=== PATIENT | male | born 1960 | race Caucasian/White ===

== ENCOUNTER 2018-12-31 22:53 | Inpatient (IN) | payer MEDICAID, OTHER ==
[2019-01-01 00:08] LABS: ADD MAN DIFF? NO
[2019-01-01 00:09] LABS: ABNORMAL IP MESSAGE 1; BASOPHILS % 0.4 % (0.0-2.0); EOSINOPHILS # 0.2 10^3/ul (0.0-0.5); EOSINOPHILS % 3.9 % (0.0-7.0); HEMATOCRIT 28.1 % (42.0-52.0); HEMOGLOBIN 8.4 g/dl (14.0-18.0); LYMPHOCYTES # 0.6 10^3/ul (0.8-2.9); LYMPHOCYTES % 10.8 % (15.0-51.0); MEAN CORPUSCULAR HEMOGLOBIN 25.9 pg (29.0-33.0); MEAN CORPUSCULAR HGB CONC 29.9 g/dl (32.0-37.0); MEAN CORPUSCULAR VOLUME 86.7 fl (82.0-101.0); MEAN PLATELET VOLUME 10.2 fl (7.4-10.4); MONOCYTE # 0.5 10^3/ul (0.3-0.9); MONOCYTES % 9.2 % (0.0-11.0); NEUTROPHILS % 75.1 % (39.0-77.0); PLATELET COUNT 92 10^3/UL (140-415); POSITIVE DIFF @See below; RED BLOOD COUNT 3.24 10^6/ul (4.70-6.10); RED CELL DISTRIBUTION WIDTH 16.6 % (11.5-14.5)
[2019-01-01 00:09] LABS: WHITE BLOOD COUNT 5.4 10^3/ul (4.8-10.8)
[2019-01-01] MEDS: morphine 4 MG/ML VIAL IV (00:19)
[2019-01-01] MEDS: ONDANSETRON 4 MG INJ IV ×3 (00:19→12:13)
[2019-01-01] MEDS: SOD CHLORIDE 0.9% 1,000 ML IV ×4 (00:20→21:06)
[2019-01-01] MEDS: CEFTRIAXONE 1 GM/50 ML (PMX) 50 ML IVPB (00:20)
[2019-01-01 00:27] LABS: PROTIME 17.3 Sec (11.9-14.9); PT RATIO 1.4
[2019-01-01 00:29] LABS: PARTIAL THROMBOPLASTIN TIME 27.5 Sec (23.0-35.0)
[2019-01-01] MEDS: OCTREOTIDE 50 MCG in SOD CHLORIDE 0.9% 25 ML IVPB (00:40)
[2019-01-01] MEDS: PANTOPRAZOLE IV 80 MG in SOD CHLORIDE 0.9% 100 ML IVPB (00:40)
[2019-01-01 00:50] LABS: ALANINE AMINOTRANSFERASE 39 IU/L (13-69); ALBUMIN 3.3 g/dl (3.3-4.9); ALBUMIN/GLOBULIN RATIO 0.91; ALKALINE PHOSPHATASE 75 IU/L (42-121); ANION GAP 10 (5-13); ASPARTATE AMINO TRANSFERASE 52 IU/L (15-46); BLOOD UREA NITROGEN 19 mg/dl (7-20); CALCIUM 8.5 mg/dl (8.4-10.2); CARBON DIOXIDE 22 mmol/L (21-31); CHLORIDE 110 mmol/L (97-110); Estimated GFR > 60 mL/min (>60); GLUCOSE 167 mg/dl (70-220); LIPASE 225 U/L (23-300); POTASSIUM 4.2 mmol/L (3.5-5.1); SODIUM 142 mmol/L (135-144); TOTAL PROTEIN 6.9 g/dl (6.1-8.1)
[2019-01-01 00:56] LABS: TROPONIN-I < 0.012 ng/ml (0.000-0.120)
[2019-01-01] MEDS: OCTREOTIDE 500 MCG in SOD CHLORIDE 0.9% 49 ML IV (01:00)
[2019-01-01] MEDS: PANTOPRAZOLE IV 80 MG in SOD CHLORIDE 0.9% 100 ML IV ×3 (01:00→21:06)
[2019-01-01] MEDS: METOCLOPRAMIDE 10 MG INJ IV (01:10)
[2019-01-01] MEDS: ONDANSETRON INJ 8 MG in DEXTROSE 5% 50 ML IV (01:10)
[2019-01-01] MEDS ORDERED: NACL 0.9% 3 ML SYG IV (02:00)
[2019-01-01] MEDS ORDERED: morphine 2 MG INJ IV (02:00)
[2019-01-01] MEDS ORDERED: LORAZEPAM 2 MG INJ IV (03:00)
[2019-01-01] MEDS: PHYTONADIONE 10 MG/ML INJ SC (03:59)
[2019-01-01 04:09] LABS: IMMEDIATE SPIN CROSSMATCH 1 2
[2019-01-01] MEDS: SOD CHLORIDE 0.9% 250 ML IV* (04:30)
[2019-01-01 09:43] LABS: IMMEDIATE SPIN CROSSMATCH 1
[2019-01-01] MEDS: OCTREOTIDE 1 MG in DEXTROSE 5% 95 ML IV (09:58)
[2019-01-01] MEDS ORDERED: TRIMETHOBENZAMIDE 100 MG/ML VIAL IM (10:00)
[2019-01-01 10:12] LABS: ADD MAN DIFF? NO
[2019-01-01 10:15] LABS: WHITE BLOOD COUNT 3.6 10^3/ul (4.8-10.8)
[2019-01-01 10:15] LABS: ABNORMAL IP MESSAGE 1; BASOPHILS % 0.3 % (0.0-2.0); EOSINOPHILS % 0.3 % (0.0-7.0); HEMATOCRIT 27.8 % (42.0-52.0); HEMOGLOBIN 8.4 g/dl (14.0-18.0); LYMPHOCYTES # 0.4 10^3/ul (0.8-2.9); LYMPHOCYTES % 11.5 % (15.0-51.0); MEAN CORPUSCULAR HEMOGLOBIN 25.8 pg (29.0-33.0); MEAN CORPUSCULAR HGB CONC 30.2 g/dl (32.0-37.0); MEAN CORPUSCULAR VOLUME 85.5 fl (82.0-101.0); MONOCYTE # 0.3 10^3/ul (0.3-0.9); MONOCYTES % 8.4 % (0.0-11.0); NEUTROPHIL # 2.8 10^3/ul (1.6-7.5); NEUTROPHILS % 78.7 % (39.0-77.0); PLATELET COUNT 73 10^3/UL (140-415); POSITIVE DIFF @See below; RED BLOOD COUNT 3.25 10^6/ul (4.70-6.10); RED CELL DISTRIBUTION WIDTH 15.9 % (11.5-14.5)
[2019-01-01 10:30] LABS: ETHANOL < 10.0 mg/dl (0-0)
[2019-01-01] MEDS: MULTIVITAMINS 10 ML, THIAMINE 100 MG, FOLIC ACID 1 MG in SOD CHLORIDE 0.9% 1,000 ML IVPB (12:09)
[2019-01-01 16:01] LABS: HEMATOCRIT 26.8 % (42.0-52.0); HEMOGLOBIN 8.3 g/dl (14.0-18.0)
[2019-01-01 19:04] LABS: HEMATOCRIT 27.1 % (42.0-52.0); HEMOGLOBIN 8.3 g/dl (14.0-18.0)
[2019-01-02 00:56] LABS: HEMATOCRIT 25.7 % (42.0-52.0); HEMOGLOBIN 7.9 g/dl (14.0-18.0)
[2019-01-02] MEDS: CEFTRIAXONE 1 GM/50 ML (PMX) 50 ML IVPB (02:00)
[2019-01-02] MEDS: OCTREOTIDE 1 MG in DEXTROSE 5% 95 ML IV (05:50)
[2019-01-02 06:03] LABS: ADD MAN DIFF? NO
[2019-01-02 06:09] LABS: WHITE BLOOD COUNT 4.4 10^3/ul (4.8-10.8)
[2019-01-02 06:09] LABS: ABNORMAL IP MESSAGE 1; BASOPHILS % 0.5 % (0.0-2.0); EOSINOPHILS # 0.2 10^3/ul (0.0-0.5); EOSINOPHILS % 5.2 % (0.0-7.0); HEMATOCRIT 27.9 % (42.0-52.0); HEMOGLOBIN 8.8 g/dl (14.0-18.0); LYMPHOCYTES # 0.6 10^3/ul (0.8-2.9); LYMPHOCYTES % 13.2 % (15.0-51.0); MEAN CORPUSCULAR HEMOGLOBIN 27.7 pg (29.0-33.0); MEAN CORPUSCULAR HGB CONC 31.5 g/dl (32.0-37.0); MEAN CORPUSCULAR VOLUME 87.7 fl (82.0-101.0); MEAN PLATELET VOLUME 11.2 fl (7.4-10.4); MONOCYTE # 0.4 10^3/ul (0.3-0.9); MONOCYTES % 8.6 % (0.0-11.0); NEUTROPHIL # 3.2 10^3/ul (1.6-7.5); NEUTROPHILS % 71.8 % (39.0-77.0); PLATELET COUNT 62 10^3/UL (140-415); POSITIVE DIFF @See below; RED BLOOD COUNT 3.18 10^6/ul (4.70-6.10); RED CELL DISTRIBUTION WIDTH 16.1 % (11.5-14.5)
[2019-01-02 06:30] LABS: HEMOGLOBIN A1C 5.3 % (0-5.9)
[2019-01-02] MEDS: PANTOPRAZOLE IV 80 MG in SOD CHLORIDE 0.9% 100 ML IV ×2 (06:37→15:44)
[2019-01-02 06:44] LABS: ALANINE AMINOTRANSFERASE 42 IU/L (13-69); ALBUMIN/GLOBULIN RATIO 0.83; ALKALINE PHOSPHATASE 74 IU/L (42-121); ANION GAP 6 (5-13); ASPARTATE AMINO TRANSFERASE 53 IU/L (15-46); BILIRUBIN,INDIRECT 1.4 mg/dl (0-1.1); BILIRUBIN,TOTAL 1.4 mg/dl (0.2-1.3); BLOOD UREA NITROGEN 13 mg/dl (7-20); CALCIUM 7.6 mg/dl (8.4-10.2); CARBON DIOXIDE 23 mmol/L (21-31); CHLORIDE 112 mmol/L (97-110); CREATININE 0.71 mg/dl (0.61-1.24); Estimated GFR > 60 mL/min (>60); GLUCOSE 131 mg/dl (70-220); POTASSIUM 3.4 mmol/L (3.5-5.1); SODIUM 141 mmol/L (135-144); TOTAL PROTEIN 6.6 g/dl (6.1-8.1)
[2019-01-02 07:16] LABS: HEPATITIS B SURFACE ANTIGEN NEGATIVE (NEGATIVE)
[2019-01-02 07:33] LABS: HEPATITIS B SURFACE ANTIBODY NEGATIVE (NEGATIVE)
[2019-01-02 07:34] LABS: HEPATITIS B CORE ANTIBODY NEGATIVE (NEGATIVE); HEPATITIS C VIRAL ANTIBODY NEGATIVE (NEGATIVE)
[2019-01-02] MEDS: SOD CHLORIDE 0.9% 1,000 ML IV ×3 (07:44→21:15)
[2019-01-02] MEDS: MULTIVITAMINS 10 ML, THIAMINE 100 MG, FOLIC ACID 1 MG in SOD CHLORIDE 0.9% 1,000 ML IVPB (08:01)
[2019-01-02] MEDS: POTASSIUM CHLORIDE 100 ML IVPB ×2 (10:47→13:21)
[2019-01-02 12:01] LABS: HEMATOCRIT 31.1 % (42.0-52.0); HEMOGLOBIN 9.7 g/dl (14.0-18.0)
[2019-01-02] MEDS: PROPOFOL 40 ML (14:29)
[2019-01-02] MEDS: LIDOCAINE 2% (SDV) 5 ML INJ (14:29)
[2019-01-02] MEDS ORDERED: ONDANSETRON 4 MG INJ IV (14:30)
[2019-01-02 16:16] LABS: HEMOGLOBIN A1C 5.4 % (0-5.9)
[2019-01-02 16:44] LABS: THYROID STIMULATING HORMONE 0.446 MIU/L (0.465-4.680)
[2019-01-02] MEDS: PANTOPRAZOLE (EC) 40 MG TAB PO (17:11)
[2019-01-02] MEDS: PROPRANOLOL 10 MG TAB PO (17:12)
[2019-01-02 17:46] LABS: HEMATOCRIT 29.7 % (42.0-52.0); HEMOGLOBIN 9.2 g/dl (14.0-18.0)
[2019-01-03] MEDS: CEFTRIAXONE 1 GM/50 ML (PMX) 50 ML IVPB (01:33)
[2019-01-03 01:35] LABS: HEMOGLOBIN 8.8 g/dl (14.0-18.0)
[2019-01-03] MEDS: SOD CHLORIDE 0.9% 1,000 ML IV (03:08)
[2019-01-03] MEDS: PANTOPRAZOLE (EC) 40 MG TAB PO (05:42)
[2019-01-03 06:20] LABS: ADD MAN DIFF? NO
[2019-01-03 06:33] LABS: ABNORMAL IP MESSAGE 1; BASOPHILS % 0.6 % (0.0-2.0); EOSINOPHILS # 0.3 10^3/ul (0.0-0.5); HEMATOCRIT 31.9 % (42.0-52.0); HEMOGLOBIN 9.8 g/dl (14.0-18.0); LYMPHOCYTES # 0.9 10^3/ul (0.8-2.9); LYMPHOCYTES % 17.4 % (15.0-51.0); MEAN CORPUSCULAR HEMOGLOBIN 27.2 pg (29.0-33.0); MEAN CORPUSCULAR HGB CONC 30.7 g/dl (32.0-37.0); MEAN CORPUSCULAR VOLUME 88.6 fl (82.0-101.0); MEAN PLATELET VOLUME 11.1 fl (7.4-10.4); MONOCYTE # 0.4 10^3/ul (0.3-0.9); MONOCYTES % 8.8 % (0.0-11.0); NEUTROPHIL # 3.2 10^3/ul (1.6-7.5); PLATELET COUNT 78 10^3/UL (140-415); POSITIVE DIFF @See below; RED CELL DISTRIBUTION WIDTH 16.2 % (11.5-14.5)
[2019-01-03 06:33] LABS: WHITE BLOOD COUNT 4.9 10^3/ul (4.8-10.8)
[2019-01-03 07:34] LABS: ANION GAP 6 (5-13); BLOOD UREA NITROGEN 9 mg/dl (7-20); CALCIUM 7.8 mg/dl (8.4-10.2); CARBON DIOXIDE 23 mmol/L (21-31); CHLORIDE 111 mmol/L (97-110); Estimated GFR > 60 mL/min (>60); GLUCOSE 115 mg/dl (70-220); POTASSIUM 3.7 mmol/L (3.5-5.1); SODIUM 140 mmol/L (135-144)
[2019-01-03] MEDS: PROPRANOLOL 10 MG TAB PO (08:15)
[2019-01-03 10:01] LABS: FREE T4 (FREE THYROXINE) 0.77 ng/dl (0.78-2.44)
[2019-01-03] MEDS: MULTIVITAMINS 10 ML, THIAMINE 100 MG, FOLIC ACID 1 MG in SOD CHLORIDE 0.9% 1,000 ML IVPB (12:48)
== END 2019-01-03 15:16 | disposition home or self-care (01) | DRG 378 ==
LOC: E/R 22:53 → 2NE 01-02 16:50 → ICU 01-01 05:20
PROC: 0DJ08ZZ Inspection of Upper Intestinal Tract, Via Natural or Artificial Opening Endoscopic (ICD-10-PCS; principal; 2019-01-02 14:00)
PROC: 30233N1 Transfusion of Nonautologous Red Blood Cells into Peripheral Vein, Percutaneous Approach (ICD-10-PCS; 2019-01-02 14:00)
PROC: 30233N1 Transfusion of Nonautologous Red Blood Cells into Peripheral Vein, Percutaneous Approach (ICD-10-PCS; 2019-01-02 14:00)
PROC: 30233K1 Transfusion of Nonautologous Frozen Plasma into Peripheral Vein, Percutaneous Approach (ICD-10-PCS; 2019-01-02 14:00)
DX: K92.2 Gastrointestinal hemorrhage, unspecified (principal); D62 Acute posthemorrhagic anemia; F10.10 Alcohol abuse, uncomplicated; K70.31 Alcoholic cirrhosis of liver with ascites; R79.1 Abnormal coagulation profile; K43.9 Ventral hernia without obstruction or gangrene; Y90.0 Blood alcohol level of less than 20 mg/100 ml; I85.10 Secondary esophageal varices without bleeding; K31.89 Other diseases of stomach and duodenum
CPT/HCPCS: 36415; 36430; 71045; 74176; 76705; 80048; 80053; 80307; 83036; 83690; 83735; 84100; 84439; 84443; 84484; 85014; 85018; 85025; 85610; 85730; 86704; 86706; 86709; 86803; 86850; 86900; 86901; 86920; 87040; 87081; 87340; 93005; 96365; 96375; 96376; 99291-25